=== PATIENT | male | born 1990 | race Caucasian/White ===

== ENCOUNTER 2020-02-23 04:51 | Emergency (ER) | payer SELFPAY ==
[2020-02-23 04:53] VITALS: BP 159/93; PULSE 80; RESP 17; TEMP 36.5; O2SAT 96; BMI 26.6
--- NOTE | 2020-02-23 05:01 | PC.NURSE ---
pt refuses to interact with staff. base demographic information received from ems. eber arango called.
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
--- NOTE | 2020-02-23 05:05 | PC.NURSE ---
eber arango at bedside
--- NOTE | 2020-02-23 05:19 | PC.NURSE ---
left via pd custody after medical clearance
[2020-02-23 05:21] VITALS: BP 139/92; PULSE 82; RESP 18; TEMP 36.7; O2SAT 99
== END 2020-02-23 05:24 | disposition home or self-care (01) ==
PROVIDERS: Emergency Provider Emergency Medicine
DX: Z04.1 Encounter for examination and observation following transport accident (principal); T40.1X1A Poisoning by heroin, accidental (unintentional), initial encounter
CPT/HCPCS: 99282

== ENCOUNTER 2024-04-25 13:22 | Emergency (ER) | payer OTHER, SELFPAY ==
[2024-04-25 13:45] VITALS: BP 126/104; PULSE 102; RESP 19; TEMP 36.6; O2SAT 98; BMI 25.7
--- NOTE | 2024-04-25 13:46 | EXP.UTC ---
Discharge Plan Disposition Patient Disposition: Home, Self-Care Condition: Good Prescriptions Prescriptions: New sulfamethoxazole-trimethoprim [Bactrim DS] 800-160 mg Tablet 1 tab PO BID 10 Days Qty: 20 0RF cephalexin 500 mg capsule 500 mg PO QID 10 Days Qty: 40 0RF mupirocin 2 % ointment 1 applic topical TID 7 Days Qty: 15 0RF No Action sildenafil [Viagra] 25 mg tablet 25 mg PO DAILY Qty: 30 2RF Referrals Follow up/Referrals: Honag León MD [Primary Care Provider] - See instructions Activity Restrictions/Add. Instructions Additional Instructions/Restrictions: Take tylenol or ibuprofen for pain or fever. Take the medications as directed to treat the infection in your wound. Follow up with your regular doctor. GO TO THE ER FOR ANY WORSENING SYMPTOMS Since you have difficulty bending the affected finger, you need to follow up with a hand specialist. The closest hand specialists are at [facility]. Their office phone number is [phone]. Please call them and get an appointment to be seen there. You could have an injury to the tendons in your finger. You could lose the ability to bend or straighten the affected finger if you do not follow up and get treated appropriately. 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 He states that he went to [facility] ER then. He states that he was told he cut his flexor tendon. He states that he was told that the tendon was repaired by sewing it, and then the laceration was repaired by suturing also. He states that he was told to f/u in 7 to 10 days to have the outside sutures removed. He states that instead of following up to have the sutures removed he tried to remove them himself when they were due to come out. He states that he has been unable to get 2 of the sutures out, so he came in here today to have them removed. He also states that the wound has been swelling and draining clear drainage. He had penicillin left over at home, so 3 days ago he began taking his penicillin. He denies any fever/chills/malaise. But he does state that wound has been very painful since it started to swell and have drainage. Related Data Previous Rx's ?Medication ?Instructions ?Recorded sildenafil 25 mg tablet (Viagra) 25 mg PO DAILY #30 tabs 05/23/22 cephalexin 500 mg capsule 500 mg PO QID 10 days #40 caps 04/25/24 mupirocin 2 % topical ointment 1 applic topical TID 7 days #15 04/25/24 grams sulfamethoxazole 800 1 tab PO BID 10 days #20 tabs 04/25/24 mg-trimethoprim 160 mg tablet (Bactrim DS) Allergies Allergy/AdvReac Type Severity Reaction Status Date / Time No Known Allergies Allergy Verified 04/25/24 13:57 [facility] Disclaimer: The information contained in this section may have been updated after the patient was seen, as this information can be updated by other users. Medical History ADHD Family History Grandfather Diabetes Heart attack Mother Coronary artery disease Father Diabetes Social History Smoking Status: Current every day smoker alcohol intake: current alcohol intake frequency: 0-2 drinks per day substance use type: denies use current occupational status: other details: self-employed Travel in the last 8 weeks: None household members: spouse and friend(s) housing: house Have you lived/traveled outside [place] in past 30 days?: No Contact w/someone who lives/traveled outside [place] past 30 days?: No Exposure to someone with infectious disease in past 14 days?: No Do you have a fever (greater than 100.4 F or 38 C)?: No Have you tested positive for COVID-19: No Exposed to someone with COVID-19 in past 14 days?: Yes Do you have a sore throat?: No Do you have a cough?: No Do you have any weakness?: No Do you have any diarrhea?: No Are you experiencing any unusual bleeding?: No Do you have any muscle aches/pain?: No Do you have any abdominal pain?: No Are you experiencing loss of taste or smell?: No ROS Obtained: Yes All systems reviewed & no additional complaints except as documented Constitutional Constitutional: Denies chills and Denies fever(s) Eyes Eyes: Denies eye discharge ENT Ears, Nose, Mouth, and Throat: Denies dizziness, Denies otalgia and Denies sore throat Cardiovascular Cardiovascular: Denies chest pain Respiratory Respiratory: Denies shortness of breath, Denies chest congestion, Denies cough, Denies stridor and Denies wheezing Gastrointestinal Gastrointestingal: Denies nausea or vomiting Musculoskeletal Musculoskeletal: Reports system reviewed and no additional complaints, except as documented and Denies arthralgias Integumentary/Breasts Skin/Breast: Reports as per HPI and Reports redness Neurologic Neurologic: Denies dizziness and Denies paresthesias Allergic/Immunologic Allergic/Immunologic: Denies wheezing Physical Exam General General appearance: alert and in no apparent distress Head Head exam: atraumatic, normocephalic and normal inspection Eye Eye exam: Present normal appearance, PERRL and EOMI ENT ENT exam: Present normal exam, normal oropharynx, mucous membranes moist, TM's normal bilaterally and normal external ear exam Neck Neck exam: Present normal inspection, full ROM and trachea midline; Absent meningismus or lymphadenopathy Chest Chest inspection: Present normal inspection and symmetric chest wall rise; Absent tenderness Respiratory Respiratory exam: Present normal lung sounds bilaterally; Absent respiratory distress Cardiovascular Cardiovascular exam: Present regular rate and normal rhythm; Absent JVD Abdominal Exam Abdominal exam: Present soft and normal bowel sounds; Absent distention, tenderness or guarding Extremities Exam Extremities exam: Present normal capillary refill; Absent calf tenderness Expanded Upper Extremity Exam Left: Forearm/Wrist exam: Present normal inspection, full ROM and tenderness; Absent swelling, tenderness over anatomical snuff box or pain with axial thumb loading Hand exam: Present tenderness, swelling, laceration and erythema; Absent full ROM Hand L/R front image: 1. laceration 2. other (erythema and mild edema) Neuromotor exam: Normal wrist extension, thumb opposition, thumb IP flexion and thumb adduction; Abnorm fingers 2-5 abduction (he is unable to flex his left index finger at all. he is unable to touch it to the tip of his thumb. All other fingers and the thumb have normal range of motion. ) Neurosensory exam: Normal radial nerve, ulnar nerve and median nerve Vascular exam: Normal capillary refill, radial pulse and ulnar pulse Back Exam Back exam: Present normal inspection; Absent tenderness Neurological Exam Neurological exam: Present alert and oriented X3 Psychiatric Psychiatric exam: Present normal affect and normal mood Skin Skin exam: Present erythema (there is mild erythema, mild edema, and clear drainage around the poorly healed laceration on the palmar surface of his left index finger. ) Lymphatic Lymphatic Findings: no adenopathy Medical Decision Making Medical Records Screening: Per USPSTF and CDC recommendations, given the prevalence of disease in our region, it is our hospital?s policy to screen for HIV and viral Hepatitis for all patients aged 18 and over and those with ongoing risk factors. Ruddy Inquiry Pt receiving controlled substance: No Orders (Tests/Meds): The 2 remaining sutures that he hadn't already removed were easily removed. The wound appears to be poorly healed with s/s of wound infection. There is clear drainage present. A culture and gram stain of the wound drainage was obtained and sent to the micro lab.
[2024-04-25] MEDS: LIDOCAINE 1% 5ML PF VIAL IM (14:10)
[2024-04-25] MEDS: cefTRIAXone 1GM VIAL 1 GM IM (14:10)
[2024-04-25 14:36] VITALS: BP 126/104; PULSE 102; RESP 19; TEMP 36.6; O2SAT 98
--- NOTE | 2024-04-27 10:39 | PC.NURSE ---
wound culture received, given to brandi maldonado aprn
--- NOTE | 2024-04-27 16:54 | PC.NURSE ---
ATTEMPTED TO CONTACT PT ABOUT WOUND CULTURE BUT UNABLE TO REACH AT THIS TIME.
== END 2024-04-25 14:56 | disposition home or self-care (01) ==
PROVIDERS: Emergency Provider Nurse Practitioner Family; PCP Family Medicine
DX: M25.642 Stiffness of left hand, not elsewhere classified (principal); S61.219A Laceration without foreign body of unspecified finger without damage to nail, initial encounter
CPT/HCPCS: 87070; 87077; 87186; 87205; 99213; G0380; J0696